=== PATIENT | male | born 2005 | race Caucasian/White ===

== ENCOUNTER 2024-03-06 17:49 | Emergency (ER) | payer SELFPAY ==
[~2024-03-06] VITALS: Ht 172.7 cm; Wt 72.6 kg
[2024-03-06 17:50] VITALS: O2SAT 98
[2024-03-06 17:56] VITALS: BP 132/84; PULSE 77; RESP 16; TEMP 98.4; O2SAT 99
[2024-03-06] MEDS ORDERED: ONDANSETRON 4MG ODT PO ONE (18:00)
== END 2024-03-06 18:58 | disposition left against medical advice (07) ==
LOC: ER 17:49
DX: S09.93XA Unspecified injury of face, initial encounter (principal); F19.90 Other psychoactive substance use, unspecified, uncomplicated; J45.909 Unspecified asthma, uncomplicated; X58.XXXA Exposure to other specified factors, initial encounter; Y93.89 Activity, other specified; Y92.89 Other specified places as the place of occurrence of the external cause; Y99.8 Other external cause status
CPT/HCPCS: 99281